=== PATIENT | male | born 1955 | race Caucasian/White ===

== ENCOUNTER 2020-12-06 17:33 | Inpatient (IN) | payer OTHER ==
[~2020-12-06] VITALS: Ht 182.9 cm; Wt 85.3 kg
[~2020-12-06 17:33] MED LIST: ASA81BEC; ATORVASTATIN CA40 MG PO; FELODIPINE 5 MG5 M1 PO; FELODIPINE ER10 MG PO; FISH OIL 1,0001 EAC5 PO; FLONASE 0.05%50 MCG NASAL; ISOSORBIDE; K-DUR10 MEQ PO; LASIX 20 MG TAB20 MG PO; LISINOPRIL; LISINOPRIL40 MG PO; METOPROLOL SUC200 MG PO; NIACIN 100MG T100 M1 PO; TOPROL XL200 MG PO; VENTOLIN HFA 1818 GM INH; WARFARIN SODIUM10 MG PO; ZOCOR 20 MG TAB20 M1 PO
[2020-12-06 17:41] VITALS: BP 150/83
[2020-12-06 17:53] LABS: BASOPHILS 0.4 % (0.0-2.0); EOSINOPHILS 2.7 % (0.0-3.0); HEMATOCRIT 33.5 % (42.0-52.0); HEMOGLOBIN 11.3 gm/dL (14.0-18.0); LYMPHOCYTES 34.5 % (24.0-44.0); MCH 32.3 pg (26.0-34.0); MCHC 33.6 g/dL (28.0-37.0); MCV 96.4 fL (80.0-100.0); MONOCYTES 8.2 % (1.0-8.0); PLATELET COUNT 119 thou/uL (150-400); POLYS 54.2 % (36.0-66.0); RBC 3.48 mil/uL (4.50-6.00); RDW 17.4 % (10.5-14.5); WBC 5.5 thou/uL (4.0-11.0)
[2020-12-06 18:00] LABS: ANION GAP 14 mmol/L (7-16); BUN 12 mg/dL (7-18); CALCIUM 8.4 mg/dL (8.5-10.1); CHLORIDE 108 mmol/L (98-107); CO2 23 mmol/L (21-32); CREATININE 1.2 mg/dL (0.7-1.3); GLUCOSE 120 mg/dL (74-106); POTASSIUM 3.7 mmol/L (3.5-5.1); SODIUM 145 mmol/L (136-145)
[2020-12-06] MEDS ORDERED: LIPITOR 40 MG T40 M1 PO (18:02)
[2020-12-06 18:10] LABS: ALBUMIN 3.6 g/dL (3.4-5.0); SGOT 115 U/L (15-37); SGPT 62 U/L (16-63); TOTAL BILIRUBIN 0.4 mg/dL (0.2-1.0); TOTAL PROTEIN 7.6 g/dL (6.4-8.2); TROPONIN-I <0.06 ng/mL (<0.06)
[2020-12-06 21:32] VITALS: BP 144/75
[2020-12-06 21:51] VITALS: BP 154/94
[2020-12-06 21:59] VITALS: BP 144/94
[2020-12-06 23:01] LABS: CHOLESTEROL 170 mg/dL (<200); HDL CHOLESTEROL 91 mg/dL (>40); LDL CHOLESTEROL 63 mg/dL (<100); TC:HDL 1.9 Ratio (Not establshd); TRIGLYCERIDE 84 mg/dL (<150); VLDL 17 mg/dL (<40)
[2020-12-06 23:03] LABS: SERUM ASSESSMENT Clear
[2020-12-06 23:35] VITALS: BP 154/87
[2020-12-07 03:49] LABS: ANION GAP 12 mmol/L (7-16); BUN 14 mg/dL (7-18); CALCIUM 8.7 mg/dL (8.5-10.1); CHLORIDE 107 mmol/L (98-107); CO2 27 mmol/L (21-32); CREATININE 1.3 mg/dL (0.7-1.3); GLUCOSE 80 mg/dL (74-106); POTASSIUM 4.2 mmol/L (3.5-5.1); SODIUM 146 mmol/L (136-145)
[2020-12-07 03:57] LABS: TROPONIN-I <0.06 ng/mL (<0.06)
[2020-12-07 04:42] VITALS: BP 168/97
[2020-12-07] MEDS ORDERED: MELATONIN3 MG PO (05:09)
[2020-12-07] MEDS ORDERED: ENTRESTO 24 MG1 EACH PO (05:09)
[2020-12-07] MEDS ORDERED: OMEPRAZOLE40 MG PO (05:10)
[2020-12-07] MEDS ORDERED: ASA81BEC PO (05:10)
[2020-12-07] MEDS ORDERED: VITAMIN B-1100 M2 PO (05:10)
[2020-12-07] MEDS ORDERED: THERA M PLUS T1 EAC2 PO (05:11)
[2020-12-07] MEDS ORDERED: FOLIC ACID1 MG PO (05:11)
[2020-12-07] MEDS ORDERED: REVIA 50 MG TAB50 MG PO (05:11)
--- NOTE | 2020-12-07 05:37 | NUR ---
PATIENT WAS ADMITTED TO THE FLOOR APPROX 2130 FROM ED. ON ARRIVAL THIS PATIENT WAS INTOXACATED. PATIENT C/O CHEST PAIN AND HAS A HX OF HEART ATTACH. PATIENT [place] THE [place]ST ONE BEFORE HERE [facility], PRIOR TO THAT IT WAS [facility]. PATIENT HAS A HISTORY OF GOING AMA. CARDIOLOGY WAS CONSULTED, RT IS DOING TREATMENTS. PATIENT HAS HAD TWO STOOLS AT THE END OF THIS SHIFT. THE PLAN IS TO REVIEW THE MED REC IN THE MORNING IN HOPE HE WILL HAVE SLEPT OFF HIS BUZZ. NO FLUIDS OR BANANNA BAGS GIVEN. ROUNDING WAS DONE AND PATIENT WAS PLACED CLOSE TO THE NURSING STATION. THE BED IS IN A LOW AND LOCKED POSITION
--- NOTE | 2020-12-07 07:07 | EKG ---
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: KAILASH : 1955 Requested By: Aurora Mcnally Order Number: [id number] MD: Gregorio Reyes Measurements Intervals [place] Rate: 105 P: 52 HI: 165 QRS: 76 QRSD: 107 T: 3 QT: 338 QTc: 447 Interpretive Statements Sinus tachycardia Abnormal inferior Q waves Compared to ECG 01/12/2016 18:01:18 Inferior Q waves now present Q waves now present ST (T wave) deviation no longer present Electronically Signed On 12-07-2020 7:07:17 CDT by Gregorio Reyes [email or web address] <ELECTRONICALLY SIGNED> By: Gregorio Reyes MD, [facility] 12/07/20 0707 1735 1735 Gregorio Reyes MD, [facility] /[facility]
--- NOTE | 2020-12-07 07:08 | EKG ---
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: : 1955 Requested By: Faina Cr Order Number: [id number] MD: Gregorio Reyes Measurements Intervals [place] Rate: 90 P: 15 AL: 149 QRS: 69 QRSD: 109 T: 47 QT: 384 QTc: 470 Interpretive Statements Sinus rhythm Compared to ECG 12/06/2020 17:35:36 Sinus tachycardia no longer present Inferior Q waves no longer present Q waves no longer present Electronically Signed On 12-07-2020 7:07:54 CDT by Gregorio Reyes [email or web address] <ELECTRONICALLY SIGNED> By: Gregorio Reyes MD, [facility] 12/07/20706 0659 Gregorio Reyes MD, [facility] /EPI
[2020-12-07 07:28] VITALS: BP 154/91
--- NOTE | 2020-12-07 09:06 | 2DMMODE ---
[facility] [place] [place] [address] 2 D/M-MODE ECHOCARDIOGRAM Name: CHRIS SYKES Room #: 204-P ADM IN M.R.#: [id number] Admission: 12/06/20 Attend Phys: Kali Ybarra MD Discharge: Date of : 59 Report #: [id number] THIS REPORT FOR: cc: PRECIOUS - No family physician/PCP FAM - No family physician/PCP Moiz James MD ~ APPROVED REPORT Study performed: 12/07/2020 08:23:42 EXAM: Comprehensive 2D, Doppler, and color-flow Echocardiogram Patient Location: Bedside Room #: 204 Status: routine BSA: 2.08 HR: 102 bpm BP: 154/91 mmHg Rhythm: NSR/TACHY Other Information Study Quality: Adequate Technically limited study due to lung disease, constant movement. Indications Chest Pain Hx: PA, stents, ETOH and tob abuse, COPD, HTN, HLP. 2D Dimensions RVDd: 33.69 mm IVSd: 10.39 (7-11mm) LVDd: 50.39 mm PWd: 12.10 (7-11mm) LVDs: 37.74 (25-40mm) Left Atrium: 42.67 (27-40mm) Aortic Root: 37.45 mm Volumes Left Atrial Volume (Systole) Single Plane 4CH: 71.52 mL Single Plane 2CH: 68.80 mL LA ESV Index: 40.00 mL/m2 Aortic Valve AoV Peak Dann.: 1.41 m/s [facility] [address] [address] 2 D/M-MODE ECHOCARDIOGRAM Name: SAMINAVIJICHRIS RUCKER Room #: 204-P [facility] IN ..#: [id number] Admission: 12/06/20 Attend Phys: Kali Ybarra MD Discharge: Date of : 59 Report #: [id number] AO Peak Gr.: 7.99 mmHg LVOT Max P.94 mmHg LVOT Max V: 0.99 m/s Pulmonary Valve PV Peak Dann.: 1.06 m/s PV Peak Gr.: 4.49 mmHg Tricuspid Valve TR Peak Dann.: 2.59 m/s RAP Estimate: 5.00 mmHg TR Peak Gr.: 27.00 mmHg PA Pressure: 32.00 mmHg Left Ventricle The left ventricle is normal size. Regional wall motion abnormalities are noted though endocardium is poorly visualized in the basilar inferior wall and lateral wall. There is normal left ventricular wall thickness. Left ventricular systolic function is normal. LVEF is 50-55%. This study is not technically sufficient to allow evaluation of the LV diastolic function. Right Ventricle The right ventricle is normal size. The right ventricular systolic function is normal. Atria Left atrium is mildly dilated. The right atrium size is normal. Aortic Valve The aortic valve is normal in structure. No aortic regurgitation is present. There is no aortic valvular stenosis. Mitral Valve The mitral valve is normal in structure. Mild mitral annular calcification. Mild mitral regurgitation. No evidence of mitral valve stenosis. Tricuspid Valve The tricuspid valve is normal in structure. Trace tricuspid regurgitation. Estimated PAP is 30-35mmHg. Pulmonic Valve Pulmonic valve is not well visualized. Great Vessels The aortic root is normal in size. Ascending aorta is not well visualized. IVC is normal in size and collapses >50% with [facility] [address] [address] 2 D/M-MODE ECHOCARDIOGRAM Name: CHRIS SYKES Room #: 204-P ADM IN M.R.#: [id number] Admission: 12/06/20 Attend Phys: Kali Ybarra MD Discharge: Date of : 59 Report #: [id number] inspiration. Pericardium There is no pericardial effusion. <Conclusion> The left ventricle is normal size. Regional wall motion abnormalities are noted though endocardium is poorly visualized in the basilar inferior wall and lateral wall. LVEF is 50-55%. The right ventricle is normal size. Left atrium is mildly dilated. The aortic valve is normal in structure. The mitral valve is normal in structure. Mild mitral annular calcification. Mild mitral regurgitation. The tricuspid valve is normal in structure. Trace tricuspid regurgitation. Estimated PAP is 30-35mmHg. Pulmonic valve is not well visualized. The aortic root is normal in size. There is no pericardial effusion. <ELECTRONICALLY SIGNED> By: Moiz James MD 12/07/20905 5 5 Moiz James MD /INF
[2020-12-07 10:51] VITALS: BP 154/91
--- NOTE | 2020-12-07 11:32 | NUR ---
ASSESSMENT CHARTED - MEDS PER DEANDRA MILNER DIET AND FLUIDS. UP IN ROOM UNSTEADY ON FEET - TREMORS. PT HOME THIS AM - TO HAVE OUT PT STRESS TEST. INSTRUCTION RE HOME MEDS/ CARE AND FOLLOW UP GIVEN TO PATIENT - STATED UNDERSTANDING OF INSTRUCTION GIVEN. LEFT UNIT VIA WHEELCHAIR - HOME VIA CAB - GIVEN VOUCHER. NO CO'S AT TIME OF D/.C
== END 2020-12-07 11:15 | disposition home or self-care (01) | DRG 313 ==
LOC: ER 17:33 → 2N 21:05 → EROBS 21:05 → 2N 21:52
PROVIDERS: Nurse Practitioner Family; Physician Assistant; ADMIT Hospitalist; ATTEND Hospitalist
DX: R07.89 Other chest pain (principal); S20.212A Contusion of left front wall of thorax, initial encounter; W18.39XA Other fall on same level, initial encounter; I25.10 Atherosclerotic heart disease of native coronary artery without angina pectoris; I10 Essential (primary) hypertension; E78.00 Pure hypercholesterolemia, unspecified; F10.129 Alcohol abuse with intoxication, unspecified; Y90.9 Presence of alcohol in blood, level not specified; E78.5 Hyperlipidemia, unspecified; F17.210 Nicotine dependence, cigarettes, uncomplicated; Y92.89 Other specified places as the place of occurrence of the external cause; Z95.5 Presence of coronary angioplasty implant and graft; I25.2 Old myocardial infarction; Y93.89 Activity, other specified; Y99.8 Other external cause status; Z79.01 Long term (current) use of anticoagulants; Z79.82 Long term (current) use of aspirin; Z79.899 Other long term (current) drug therapy; Z88.0 Allergy status to penicillin
CPT/HCPCS: 10081

== ENCOUNTER 2021-02-26 15:44 | Emergency (ER) | payer OTHER ==
[~2021-02-26] VITALS: Ht 182.9 cm; Wt 81.7 kg
[~2021-02-26 15:44] MED LIST changes: +ASA81BEC PO; +ENTRESTO 24 MG1 EACH PO; +FOLIC ACID1 MG PO; +LIPITOR 40 MG T40 M1 PO; +MELATONIN3 MG PO; +OMEPRAZOLE40 MG PO; +REVIA 50 MG TAB50 MG PO; +THERA M PLUS T1 EAC2 PO; +VITAMIN B-1100 M2 PO
[2021-02-26 15:45] VITALS: BP 164/84
[2021-02-26 16:31] LABS: HEMATOCRIT 42.4 % (42.0-52.0); HEMOGLOBIN 14.4 gm/dL (14.0-18.0); MCH 32.8 pg (26.0-34.0); MCHC 33.9 g/dL (28.0-37.0); MCV 96.6 fL (80.0-100.0); RBC 4.39 mil/uL (4.50-6.00); WBC 10.4 thou/uL (4.0-11.0)
[2021-02-26 16:46] LABS: ANION GAP 19 mmol/L (7-16); BUN 26 mg/dL (7-18); CALCIUM 8.8 mg/dL (8.5-10.1); CHLORIDE 101 mmol/L (98-107); CO2 16 mmol/L (21-32); CREATININE 1.4 mg/dL (0.7-1.3); GLUCOSE 54 mg/dL (74-106); POTASSIUM 4.4 mmol/L (3.5-5.1); SODIUM 136 mmol/L (136-145)
[2021-02-26 16:52] LABS: ALBUMIN 3.6 g/dL (3.4-5.0); SALICYLATE 5.5 mg/dL (2.8-20.0); SGOT 28 U/L (15-37); SGPT 35 U/L (16-63); TOTAL BILIRUBIN 0.3 mg/dL (0.2-1.0); TOTAL PROTEIN 7.8 g/dL (6.4-8.2); TROPONIN-I <0.06 ng/mL (<0.06)
[2021-02-26 19:12] LABS: URINE BILIRUBIN NEGATIVE (Negative); URINE BLOOD NEGATIVE (Negative); URINE CLARITY CLEAR; URINE COLOR YELLOW; URINE GLUCOSE-RANDOM* NEGATIVE (Negative); URINE KETONES 1+ (Negative); URINE LEUKOCYTES-REFLEX NEGATIVE (Negative); URINE NITRITE-REFLEX NEGATIVE (Negative); URINE PROTEIN (DIPSTICK) NEGATIVE (Negative); URINE SPECIFIC GRAVITY 1.025 (1.005-1.035); URINE UROBILINOGEN 0.2 E.U./dl (0.2-1.0)
[2021-02-26 19:21] LABS: AMP/METHAMP Negative (Negative); BARBITURATES Negative (Negative); BENZODIAZEPINES Negative (Negative); COCAINE Negative (Negative); METHADONE Negative (Negative); OPIATES Negative (Negative); PCP Negative (Negative)
[2021-02-26 21:16] LABS: CALCIUM 8.6 mg/dL (8.5-10.1); CREATININE 1.5 mg/dL (0.7-1.3); POTASSIUM 4.2 mmol/L (3.5-5.1)
--- NOTE | 2021-02-27 10:46 | EKG ---
[place] [address] [facility] [place] [address] ELECTROCARDIOGRAM REPORT Name: MONYCHRIS D Room #: [facility]#: [id number] Admission: 02/26/21 Attend Phys: Discharge: Date of : 59 Report #: [id number] [facility] ED Test Date: 2021-02-26 Test Time: 16:01:58 Pat Name: CHRIS SYKES Department: Room: Gender: M Geospatial Specialist: DOTTIE : 1955 Requested By: Miroslava Canales Order Number: [id number] MD: Daniel Leon Measurements Intervals [place] Rate: 97 P: 0 HI: 145 QRS: 66 QRSD: 110 T: -7 QT: 385 QTc: 489 Interpretive Statements Sinus rhythm Small inferior Q waves Compared to ECG 12/07/2020 06:59:19 No significant change was found Electronically Signed On 02-27-2021 10:46:39 CDT by Daniel Leon [email or web address] <ELECTRONICALLY SIGNED> By: Daniel Leon MD, [facility] 02/27/21 1046 1601 1601 Daniel Leon MD, FACC /EPI
== END 2021-02-27 12:50 ==
LOC: ER 15:44
PROVIDERS: Nurse Practitioner Family
DX: R45.851 Suicidal ideations (principal); I25.10 Atherosclerotic heart disease of native coronary artery without angina pectoris; I10 Essential (primary) hypertension; E78.5 Hyperlipidemia, unspecified; F10.129 Alcohol abuse with intoxication, unspecified; Z20.822 Contact with and (suspected) exposure to COVID-19; Z79.51 Long term (current) use of inhaled steroids; Z79.899 Other long term (current) drug therapy; Z88.0 Allergy status to penicillin

== ENCOUNTER 2021-06-07 04:14 | Emergency (ER) | payer OTHER ==
[~2021-06-07] VITALS: Ht 182.9 cm; Wt 79.4 kg
[2021-06-07 05:04] LABS: ABSOLUTE NEUTROPHILS 2.5 thou/uL (1.4-8.2); EOSINOPHILS 5.1 % (0.0-3.0); HEMATOCRIT 37.4 % (42.0-52.0); HEMOGLOBIN 13.1 gm/dL (14.0-18.0); LYMPHOCYTES 46.1 % (24.0-44.0); MCH 33.3 pg (26.0-34.0); MCV 95.2 fL (80.0-100.0); MONOCYTES 6.4 % (1.0-8.0); PLATELET COUNT 82 thou/uL (150-400); POLYS 41.4 % (36.0-66.0); RBC 3.93 mil/uL (4.50-6.00); RDW 13.8 % (10.5-14.5)
[2021-06-07 05:06] LABS: ANION GAP 11 mmol/L (7-16); BUN 8 mg/dL (7-18); CALCIUM 8.6 mg/dL (8.5-10.1); CHLORIDE 95 mmol/L (98-107); CO2 28 mmol/L (21-32); CREATININE 1.1 mg/dL (0.7-1.3); GLUCOSE 88 mg/dL (74-106); POTASSIUM 3.1 mmol/L (3.5-5.1); SODIUM 134 mmol/L (136-145)
[2021-06-07 06:21] VITALS: BP 125/82
--- NOTE | 2021-06-07 15:41 | EKG ---
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 : 1955 Requested By: Carson Khan Order Number: [id number] MD: Gregorio Reyes Measurements Intervals [place] Rate: 83 P: 46 [place]: 163 QRS: 71 QRSD: 117 T: 24 QT: 409 QTc: 481 Interpretive Statements Sinus rhythm Nonspecific intraventricular conduction delay Compared to ECG 02/26/2021 16:01:58 Intraventricular conduction delay now present Electronically Signed On 06-07-2021 15:40:55 CDT by Gregorio Reyes [email or web address] <ELECTRONICALLY SIGNED> By: Gregorio Reyes MD, FACC 06/07/21 1540 0420 0420 Gregorio Reyes MD, FACC /EPI
== END 2021-06-07 06:27 | disposition home or self-care (01) ==
LOC: ER 04:14
PROVIDERS: Emergency Medicine
DX: F10.129 Alcohol abuse with intoxication, unspecified (principal); I25.10 Atherosclerotic heart disease of native coronary artery without angina pectoris; I10 Essential (primary) hypertension; E78.5 Hyperlipidemia, unspecified; F55.8 Abuse of other non-psychoactive substances; Z90.49 Acquired absence of other specified parts of digestive tract; Z79.51 Long term (current) use of inhaled steroids; Z79.82 Long term (current) use of aspirin; Z79.891 Long term (current) use of opiate analgesic; Z79.1 Long term (current) use of non-steroidal anti-inflammatories (NSAID); Z79.899 Other long term (current) drug therapy; Z88.0 Allergy status to penicillin

== ENCOUNTER 2021-06-11 16:45 | Inpatient (IN) | payer OTHER ==
[~2021-06-11] VITALS: Ht 182.9 cm; Wt 75.3 kg
--- NOTE | ~2021-06-11 | HC ---
[facility] [place] [address] CONSULTATION Name: MONYCHRIS Room #: 204-P [facility] IN ..#: [id number] Admission: 06/11/21 Attend Phys: Jovon Alford MD Discharge: 06/14/21 Date of : 59 Report #: [id number] THIS REPORT FOR: cc: PRECIOUS - No family physician/PCP FAM - No family physician/PCP Ignacio Henriquez MD ~ DATE OF SERVICE: 06/14/2021 We were asked to see the patient by the hospitalist and neurologist. HISTORY OF PRESENT ILLNESS: The patient is a 65-year-old, admitted 06/11/2021 with neurologic change. The patient tells me that he had the onset of left arm and leg pain rather than weakness or lack of sensation. Later, this progressed to include visual changes. According to the ER note, the patient had unilateral weakness and pain noted approximately 2 hours prior to arrival. Over the course of the hospitalization, the symptoms largely resolved. CT of the head showed 60-70% right and 50% left internal carotid stenosis. MRI showed atrophy and chronic small vessel ischemic disease, but no acute changes. Carotid duplex showed some mild increase in activity, but no hemodynamically significant stenosis by this modality. PAST MEDICAL HISTORY: Significant for coronary artery disease, hypertension, hyperlipidemia, and alcohol abuse. MEDICATIONS: At home includes albuterol, Entresto, melatonin, thiamine, aspirin, omeprazole, Revia, folic acid, multivitamin, lisinopril, warfarin, metoprolol, furosemide, potassium, Plendil, and atorvastatin. ALLERGIES: THE PATIENT STATES HE IS ALLERGIC TO PENICILLIN and that this causes rash. SOCIAL HISTORY: Positive for alcohol and tobacco use. REVIEW OF SYSTEMS: I agree with the review of systems as dictated in the chart. PHYSICAL EXAMINATION: GENERAL: The patient is sitting in his room quietly, looks older than his stated age. VITAL SIGNS: Temperature 37.5, heart rate 67, respiratory rate 18, and blood pressure 129/85. HEENT: No scleral icterus. I see no arcus. NECK: No mass, no bruit. CHEST: Clear to auscultation. HEART: Rhythm regular, no murmur. ABDOMEN: Soft. [facility] [address] [place] [address] CONSULTATION Name: CHRIS SYKES Hillary Room #: 204-P [facility] IN [facility].#: [id number] Admission: 06/11/21 Attend Phys: Jovon Alford MD Discharge: 06/14/21 Date of : 59 Report #: [id number] EXTREMITIES: No clubbing, cyanosis, or edema. MUSCULOSKELETAL: No specific bone or joint asymmetry or deformity. NEUROLOGIC: No gross motor or sensory dysfunction. SKIN: No rash or infection. PSYCHIATRIC: Answers questions appropriately, but is vague on timing and is eager to go home. ASSESSMENT AND PLAN: I reviewed the findings of the MRI and CT with the patient and discussed them in the context of his symptoms. As described to me, the symptom of left-sided pain is unusual for stroke or neurologic dysfunction. The weakness described in the Emergency Department would be more characteristic. There is no high-grade lesions seen. It is not clear to me what the role for Coumadin is in this patient, but I will discuss this with others. In any event, we note the patient is already slated for discharge and we are happy to see the patient again in the office after our discussions with Neurology. Thank you for the consult. By: [id number] Ignacio Henriquez MD /nt
--- NOTE | ~2021-06-11 | HC ---
[facility] [place] [address] CONSULTATION Name: MONYCHRIS Hillary Room #: 204-P ADM IN ..#: [id number] Admission: 06/11/21 Attend Phys: Jovon Alford MD Discharge: Date of : 59 Report #: [id number] THIS REPORT FOR: cc: FAM - No family physician/PCP FAM - No family physician/PCP Ezio Botello MD ~ DATE OF SERVICE: 06/12/2021 HISTORY OF PRESENT ILLNESS: The patient is a 65-year-old white male with history of coronary artery disease, alcohol abuse, hypertension, admitted with blurry vision, weakness, left arm and leg. MRI of the brain was negative. He does have bilateral carotid disease. He had some pain complaints of his left shoulder and arm and x-rays of the shoulder and elbow are both negative. He has a past history of alcohol abuse, half a pint of whiskey per day and was noted to have confusion, agitation overnight with impulsive behavior, was given Haldol and has Ativan for alcohol withdrawal. We are seeing him in rehabilitation medicine consultation. PAST MEDICAL HISTORY: Includes prior [place] and history of tobacco abuse, one-third pack per day. HABITS: As noted. MEDICATIONS: Please see the full medication listing. ALLERGIES: PENICILLIN. SOCIAL HISTORY: Apparently lives in a house with a female significant other who works. The patient indicated he worked in [employer]. He was somewhat confused and is a limited historian. REVIEW OF SYSTEMS: No specific complaints of chest pain, shortness of breath or abdominal discomfort. PHYSICAL EXAMINATION: GENERAL: A 65-year-old white male, in no obvious distress. VITAL SIGNS: Temperature of 36.4, pulse 73, respirations 18, blood pressure 110/76. NEUROLOGIC: Facies appeared symmetric. He thought that he had stopped working in 1961 and that the current year was 1962. He does follow basic 1-step commands with some latency. He has functional range of motion of both upper extremities, strength is grade 4-/5. Lower extremities, no focal calf swelling, functional range of motion, strength is grade 4-/5. DTRs are trace to 1. On 06/12/2021, he was up in physical therapy with sit to stand, min assist, gait 150 feet min assist at that time and toilet transfers were min assist. [address] [address] CONSULTATION Name: CHRIS SYKES Room #: 204-P [facility] IN [facility].#: [id number] Admission: 06/11/21 Attend Phys: Jovon Alford MD Discharge: Date of : 59 Report #: [id number] ASSESSMENT: A 65-year-old white male with the following problem list: 1. Alcohol withdrawal. He has a history of ETOH abuse. He was given Haldol and has Ativan available. 2. Bilateral carotid artery disease, right worse than left. 3. Left arm discomfort that appears to be improved. X-rays were negative. 4. Hypertension. 5. Hyperlipidemia. 6. Hypokalemia. 7. Tobacco abuse. PLAN: The patient was doing reasonably well functionally and physical therapy. He is now being monitored regarding alcohol abuse. Would anticipate he should be able to return back to the home setting as he further medically stabilizes and improves from his alcohol abuse. Thank you for asking us to assist in this patient's care. By: 0836 0911 Ezio Botello MD /nt
[2021-06-11 16:46] VITALS: BP 142/84
[2021-06-11 17:34] LABS: ABSOLUTE NEUTROPHILS 3.9 thou/uL (1.4-8.2); BASOPHILS 0.8 % (0.0-2.0); EOSINOPHILS 1.3 % (0.0-3.0); HEMOGLOBIN 11.2 gm/dL (14.0-18.0); LYMPHOCYTES 26.5 % (24.0-44.0); MCH 32.9 pg (26.0-34.0); MCV 96.7 fL (80.0-100.0); MONOCYTES 9.5 % (1.0-8.0); PLATELET COUNT 94 thou/uL (150-400); POLYS 61.9 % (36.0-66.0); RBC 3.42 mil/uL (4.50-6.00); RDW 14.3 % (10.5-14.5); WBC 6.3 thou/uL (4.0-11.0)
[2021-06-11 17:42] LABS: CALCIUM 8.1 mg/dL (8.5-10.1)
[2021-06-11 17:45] LABS: APTT 26.9 Seconds (24.5-32.8); INR 1.01
[2021-06-11 17:57] LABS: POTASSIUM 2.8 mmol/L (3.5-5.1)
[2021-06-11 20:21] VITALS: BP 151/82
[2021-06-11 21:05] VITALS: BP 154/90
[2021-06-11 22:20] VITALS: BP 149/98
--- NOTE | 2021-06-12 00:46 | NUR ---
PT ADMITTED FROM ER, ALERT AND ORIENTEDX4, PAIN TO THE L.LOWER LEG AND L.ARM, ADMISSION ASSESSMENT, HX AND EDUCATION COMPLETED, UNABLE TO OBTAIN ANY CONTACT INFORMATION FOR THE DAUGHTER AND FRIEND, NIH SCORE OF 5, NO NEEDS AT THIS TIME, WILL CONTINUE TO MONITOR PER POC
[2021-06-12 04:37] LABS: HEMATOCRIT 35.9 % (42.0-52.0); HEMOGLOBIN 12.4 gm/dL (14.0-18.0); MCH 33.3 pg (26.0-34.0); MCHC 34.5 g/dL (28.0-37.0); MCV 96.6 fL (80.0-100.0); RBC 3.72 mil/uL (4.50-6.00); RDW 14.4 % (10.5-14.5); WBC 5.5 thou/uL (4.0-11.0)
[2021-06-12 04:45] VITALS: BP 129/89
[2021-06-12 05:06] LABS: ANION GAP 9 mmol/L (7-16); BUN 8 mg/dL (7-18); CALCIUM 8.7 mg/dL (8.5-10.1); CHLORIDE 102 mmol/L (98-107); CHOLESTEROL 115 mg/dL (<200); CO2 27 mmol/L (21-32); CREATININE 1.1 mg/dL (0.7-1.3); GLUCOSE 108 mg/dL (74-106); HDL CHOLESTEROL 57 mg/dL (>40); LDL CHOLESTEROL 37 mg/dL (<100); POTASSIUM 3.3 mmol/L (3.5-5.1); SODIUM 138 mmol/L (136-145); TRIGLYCERIDE 108 mg/dL (<150); VLDL 22 mg/dL (<40)
[2021-06-12 05:09] LABS: SERUM ASSESSMENT Clear
[2021-06-12 07:45] VITALS: BP 133/85
--- NOTE | 2021-06-12 11:29 | EKG ---
[address] [place] [address] ELECTROCARDIOGRAM REPORT Name: CHRIS SYKES Room #: 204-P [facility] IN ..#: [id number] Admission: 06/11/21 Attend Phys: Jovon Alford MD Discharge: Date of : 59 Report #: [id number] 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 Inspector: WALTER : 1955 Requested By: Carson Khan Order Number: [id number] MD: Daniel Leon Measurements Intervals [place] Rate: 80 P: -8 DC: 163 QRS: 43 QRSD: 115 T: 7 QT: 403 QTc: 465 Interpretive Statements Sinus rhythm Multiple ventricular premature complexes Compared to ECG 06/07/2021 04:20:01 Ventricular premature complex(es) now present Electronically Signed On 06-12-2021 11:29:37 CDT by Daniel Leon [email or web address] <ELECTRONICALLY SIGNED> By: Daniel Leon MD, [facility] 06/12/21 1129 39 39 Daniel Leon MD, [facility] /EPI
[2021-06-12 11:30] VITALS: BP 117/74
--- NOTE | 2021-06-12 12:23 | NUR ---
ASSUMED CARE OF PT AT 0700 PT IS RESTING IN BED AT TIME OF ASSESSMENT AND MEDICATION ADMINISTRATION. PT REPORTS SLIGHT PAIN IN LEFT SIDE OF LEG AND LEFT UPPER EXTERMITY. PT ALSO REPORTS THAT HE IS HAVING SOME ANXIETY. PT IS GIVEN PO MEDICATINS ALONG IWTH 1MG OF ATIVAN IV. PT STATED THAT MEDICATION WAS EFFECTIVE AT RELEAVING PT ANXIETY. PT IS RESTING IN ROOM EATING LUNCH AT THIS ITME. WILL CONTINUE TO MONITOR.
--- NOTE | 2021-06-12 14:18 | NUR ---
CONSULT RECEIVED FOR DR. ROMERO. PATIENT'S CHART REVIEWED BY ESCALATION ENGINEER AND INFORMATION REVIEWED WITH DR. ROMERO. PATIENT IS A HIGHER LEVEL AND MAY BE ABLE TO DISCHARGE TO HOME WHEN MEDICALLY STABLE. WILL FOLLOW UP ON MONDAY TO CONFIRM IF PATIENT MIGHT HAVE PAYER SOURCE AND TO SEE LEVEL OF FUNCTION TO DETERMINE IF PATIENT WOULD NEED REHAB STAY OR BE ABLE TO DISCHARGE TO HOME. THANK YOU FOR THIS REFERRAL.
[2021-06-12 15:45] VITALS: BP 114/74
[2021-06-12 20:20] VITALS: BP 118/69
[2021-06-12 23:14] VITALS: BP 118/69
[2021-06-13 03:08] LABS: HEMOGLOBIN 11.5 gm/dL (14.0-18.0); MCH 32.8 pg (26.0-34.0); MCHC 33.7 g/dL (28.0-37.0); MCV 97.3 fL (80.0-100.0); RBC 3.5 mil/uL (4.50-6.00); RDW 14.1 % (10.5-14.5); WBC 4.2 thou/uL (4.0-11.0)
[2021-06-13 03:24] LABS: CALCIUM 8.4 mg/dL (8.5-10.1); POTASSIUM 3.7 mmol/L (3.5-5.1)
[2021-06-13 04:07] VITALS: BP 132/72
--- NOTE | 2021-06-13 04:37 | NUR ---
ASSUMED PT CARE AT 1900, PT IS AWAKE, ALERT AND ORIENTEDX4, ASSESSMENTS CHARTED, AFIB ON TELE, REMAINS ON CARDIZEM GTT, TITRATED PER PROTOCOL, NOW AT 10ML/HR, DENIES PAIN OR SOA, NO NEEDS AT THIS TIME, WILL CONTINUE TO MONITOR PER POC
--- NOTE | 2021-06-13 04:53 | NUR ---
ASSUMED PT CARE AT 1900, ALERT AND ORIENTEDX4, SR ON TELE, REPORTED SOME ANXIETY, CIWA SCORE OF A 10, PT GIVEN ATIVAN PER PROTOCOL AND PRN FOR ANXIETY, REQUESTED RENATA TX, RIDING TEACHER NOTIFIED, ORDERS RECEIVED AND IMPLEMENTED, MEDS GIVEN PER MAR, INCONTINENT OF URINE AT TIMES, REMINDED TO USE CALL LIGHT FOR NEEDS, ALL FALL PRECAUTIONS IN PLACE; FREQUENT ROUNDING, WILL CONTINUE TO MONITOR PT PER POC
[2021-06-13 07:08] LABS: GLYCOHEMOGLOBIN (HGB A1C) 4.9 % (4.8-5.6)
[2021-06-13 07:45] VITALS: BP 129/68
--- NOTE | 2021-06-13 09:56 | HC ---
[facility] [place] [place] [address] CONSULTATION Name: MONYCHRIS D Room #: 204-P ADM IN ..#: [id number] Admission: 06/11/21 Attend Phys: Jovon Alford MD Discharge: Date of : 59 Report #: [id number] THIS REPORT FOR: cc: FAM - No family physician/PCP FAM - No family physician/PCP Ava Armstrong DO ~ DATE OF SERVICE: 06/12/2021 NEUROLOGY CONSULT HISTORY OF PRESENT ILLNESS: The patient is a 65-year-old male who tells me that he started to develop left arm and leg pain yesterday, it was throughout the arm. He finally decided to come to the Emergency Room when the pain became intense. He also thought there was a weakness in the arm and leg, but thought that was from the pain. There may have been some numbness. He states that today the pain is better, although he still has it. He takes an aspirin 81 mg a day. He also takes metoprolol. He tells me that he sees a mail messenger at , but does not have a primary care physician. PAST MEDICAL HISTORY: Coronary artery disease, alcohol abuse, alcohol-related seizures, tobacco abuse, hypertension, hyperlipidemia. PAST SURGICAL HISTORY: Cholecystectomy. MEDICATIONS: Aspirin 81 mg daily, atorvastatin 40 mg at bedtime, Lovenox 40 mg at bedtime, folic acid 1 mg daily, lisinopril 40 mg daily, metoprolol XL 200 mg daily, Norvasc 10 mg daily, pantoprazole 40 mg daily, thiamine 100 mg daily. ALLERGIES: PENICILLIN. VITAL SIGNS: Temperature 36.8, pulse rate 75, respiratory rate 18, blood pressure 117/74, bedside pulse oximetry 100% on room air. LABORATORY DATA: Hematology: White blood cell count 5.5, hemoglobin 12.4, hematocrit 35.9, MCV 96.6, platelet count 105,000. INR 1. Chemistry: Sodium 138, potassium 3.3, chloride 102, carbon dioxide 27, creatinine 1.1, GFR 68, glucose 108, calcium 8.7, magnesium 1.8. Triglycerides 108, cholesterol 115, LDL cholesterol 37, HDL cholesterol 57. Serum alcohol level 135. Serology: COVID negative. RADIOLOGY: CTA of the head and neck show at least 60-70% narrowing of the right internal carotid artery and 50% narrowing of the left internal carotid artery. There is 50% narrowing of the right vertebral artery. NEUROLOGIC: Cranial nerves II-XII are grossly intact. Motor exam demonstrates symmetrical strength in all 4 extremities. The [place] [address] CONSULTATION Name: CHRIS SYKES Hillary Room #: 204-P [facility]#: [id number] Admission: 06/11/21 Attend Phys: Jovon Alford MD Discharge: Date of : 59 Report #: [id number] above his head. He is able to lift each leg off the bed. Reflexes are trace throughout. Plantar responses are flexor. Coordination shows no evidence of dysmetria. Gait was not tested. IMPRESSION AND PLAN: This patient may have had either a TIA or possibly a stroke given that he continues to have pain in the left upper and lower extremities, although I saw no evidence of weakness on examination. An MRI of the head has been ordered for him. He is also going to need an echocardiogram. I would also recommend a Vascular Surgery consult. With regard to the patient's medication, I would recommend an increase in aspirin to 325 mg daily. I spoke with the patient about his cigarette use and he says that he is trying to stop. I explained to him that this would be a good time to finally stop smoking as his smoking puts him at risk for stroke. I thank you for your kind referral of the patient. We will continue to follow him with you. <ELECTRONICALLY SIGNED> By: Ava Armstrong DO 06/13/21 0956 1145 1332 Ava Armstrong DO /nt
[2021-06-13 11:45] VITALS: BP 129/69
[2021-06-13 15:45] VITALS: BP 98/64
[2021-06-14] VITALS (7 sets, daily range): BP systolic 92–129; BP diastolic 57–85
--- NOTE | 2021-06-14 02:45 | NUR ---
ASSUMMED PT CARE AT 1900, PT IS VERY CONFUSED, IMPULSIVE, AGITATED, ATTEMPTED TO GET OT OT BED MULTIPLE TIMES, LIBRARY SERIALS ASSISTANT NOTIFIED, ORDER FOR ONETIME HALDOL RECEIVED AND IMPLEMENTED, PT REMAINED CALM WITH PERIODS OF AGITATION AND IMPULSIVENESS, REMAINS CONFUSED THIS SHIFT, REORIENTED TO REALITY COUPLE TIMES, MANAGED WITH ATIVAN FOR ALCOHOL WITHDRAWAL, O2SATS STABLE, INCONTINENT OF URINE, IV FLUIDS NOT RUNNIND D/T PATIENT ATTEMPTING TO PULL ON THE IV, WILL CONTINUE TO MONITOR AND TREAT PT FOR WITHDRAWAL PER ORDERS; NOT PROGRESSING TOWARDS DISCHARGE AT THIS TIME
--- NOTE | 2021-06-14 11:10 | 2DMMODE ---
[facility] [place] [address] 2 D/M-MODE ECHOCARDIOGRAM Name: CHRIS SYKES Room #: 204-P ADM IN ..#: [id number] Admission: 06/11/21 Attend Phys: Jovon Alford MD Discharge: Date of : 59 Report #: [id number] THIS REPORT FOR: cc: PRECIOUS - Kayce family physician/PCP PRECIOUS - Kayce family physician/PCP Gregorio Reyes MD [facility] ~ APPROVED REPORT Study performed: 06/14/2021 10:00:36 EXAM: Comprehensive 2D, Doppler, and color-flow Echocardiogram Patient Location: Bedside Room #: 204 Status: routine BSA: 98.68 HR: 63 bpm BP: 110/76 mmHg Rhythm: NSR Other Information Study Quality: Good Indications CVA/TIA CAD Hypertension/HDD Echo Enhancing Agent Indication: Rule out Shunt Agent(s) / Amount(s) Used: Agitated Saline 7 cc 2D Dimensions RVDd: 28.97 mm IVSd: 8.89 (7-11mm) LVOT Diam: 25.51 (18-24mm) LVDd: 56.08 mm PWd: 9.09 (7-11mm) Ascending Ao: 37.58 (22-36mm) LVDs: 35.75 (25-40mm) Left Atrium: 38.39 (27-40mm) Aortic Root: 38.32 mm IVC: 20.00 mm Volumes Left Atrial Volume (Systole) Single Plane 4CH: 47.04 mL Single Plane 2CH: 34.[address] [facility] [address] [address] 2 D/M-MODE ECHOCARDIOGRAM Name: CHRIS SYKES Room #: 204-P [facility] IN ..#: [id number] Admission: 06/11/21 Attend Phys: Jovon Alford MD Discharge: Date of : 59 Report #: [id number] Aortic Valve AoV Peak Adnn.: 0.98 m/s AO Peak Gr.: 3.86 mmHg LVOT Max P.86 mmHg LVOT Max V: 0.85 m/s JASON Vmax: 4.40 cm2 Mitral Valve E/A Ratio: 0.7 MV Decel. Time: 321.37 ms MV E Max Dann.: 0.68 m/s MV A Dann.: 0.91 m/s MV PHT: 93.20 ms IVRT: 198.39 ms Pulmonary Valve PV Peak Dann.: 0.83 m/s PV Peak Gr.: 2.73 mmHg Pulmonary Vein P Vein S: 0.56 m/s P Vein A: 0.15 m/s P Vein D: 0.34 m/s P Vein A Dur.: 96.9 msec P Vein S/D Ratio: 1.65 Left Ventricle The left ventricle is normal size. There is normal LV segmental wall motion. There is normal left ventricular wall thickness. Left ventricular systolic function is normal. The left ventricular ejection fraction is within the normal range. LVEF is 55-60%. Grade I - abnormal relaxation pattern. Right Ventricle The right ventricle is normal size. The right ventricular systolic function is normal. Atria The left atrium size is normal. Injection of contrast documented no interatrial shunt. The right atrium size is normal. Aortic Valve The aortic valve is normal in structure. No aortic regurgitation is present. There is no aortic valvular stenosis. Mitral Valve The mitral valve is normal in structure. Mild mitral regurgitation. No evidence of mitral valve stenosis. Tricuspid Valve [facility] [address] [place] [address] 2 D/M-MODE ECHOCARDIOGRAM Name: CHRIS SYKES Room #: 204-P [facility] IN .R.#: [id number] Admission: 06/11/21 Attend Phys: Jovon Alford MD Discharge: Date of : 59 Report #: [id number] The tricuspid valve is normal in structure. There is no tricuspid valve regurgitation noted. Pulmonic Valve The pulmonary valve is normal in structure. There is no pulmonic valvular regurgitation. Great Vessels The aortic root is normal in size. IVC is normal in size and collapses >50% with inspiration. Pericardium There is no pericardial effusion. <Conclusion> Normal left ventricle size/wall thickness central ejection fraction 55-60% Grade 1 diastolic dysfunction Normal right ventricle size/function Normal atrial size Normal aortic valve structure and function Mild mitral valve insufficiency No tricuspid valve insufficiency No pericardial effusion Normal aortic root size. <ELECTRONICALLY SIGNED> By: Gregorio Reyes MD, FACC 06/14/211108 08 08 Gregorio Reyes MD, FACC /INF
--- NOTE | 2021-06-14 15:34 | NUR ---
met with patient he admits with leg weakness. Patient resides in independent home. He has a lady friend who assists him at home. He reports she is with him 80 percent of the time. he has no health insurance. has canes and walkers at home. Patient to vt home today. Cab voucher given to patient. verified address.
== END 2021-06-14 18:50 | disposition home or self-care (01) | DRG 301 ==
LOC: ER 16:45 → EROBS 18:24 → 2N 22:07
PROVIDERS: Emergency Medicine; ADMIT Hospitalist; ATTEND Hospitalist
DX: I77.9 Disorder of arteries and arterioles, unspecified (principal); I48.91 Unspecified atrial fibrillation; I10 Essential (primary) hypertension; E78.5 Hyperlipidemia, unspecified; E87.6 Hypokalemia; F10.10 Alcohol abuse, uncomplicated; Z20.822 Contact with and (suspected) exposure to COVID-19; I25.10 Atherosclerotic heart disease of native coronary artery without angina pectoris; Z88.0 Allergy status to penicillin; Z79.899 Other long term (current) drug therapy
CPT/HCPCS: 10081

== ENCOUNTER 2021-06-27 17:49 | Emergency (ER) | payer OTHER ==
[~2021-06-27] VITALS: Ht 182.9 cm; Wt 77.1 kg
[2021-06-27 19:30] LABS: SALICYLATE 5.4 mg/dL (2.8-20.0)
[2021-06-27 20:10] LABS: ABSOLUTE NEUTROPHILS 3.5 thou/uL (1.4-8.2); BASOPHILS 4.9 % (0.0-2.0); HEMATOCRIT 41.9 % (42.0-52.0); HEMOGLOBIN 14.3 gm/dL (14.0-18.0); LYMPHOCYTES 40.8 % (24.0-44.0); MCH 32.9 pg (26.0-34.0); MCHC 34.1 g/dL (28.0-37.0); MCV 96.6 fL (80.0-100.0); PLATELET COUNT 188 thou/uL (150-400); POLYS 46.3 % (36.0-66.0); RBC 4.34 mil/uL (4.50-6.00); RDW 14.6 % (10.5-14.5); WBC 7.6 thou/uL (4.0-11.0)
[2021-06-27 21:24] LABS: CALCIUM 8.9 mg/dL (8.5-10.1); CREATININE 1.1 mg/dL (0.7-1.3); POTASSIUM 4.4 mmol/L (3.5-5.1)
[2021-06-28 02:26] LABS: AMP/METHAMP Negative (Negative); BARBITURATES Negative (Negative); BENZODIAZEPINES Negative (Negative); COCAINE Negative (Negative); METHADONE Negative (Negative); OPIATES Negative (Negative); PCP Negative (Negative)
[2021-06-28 06:14] VITALS: BP 136/80
== END 2021-06-28 06:10 | disposition home or self-care (01) ==
LOC: ER 17:49
PROVIDERS: Student in an Organized Health Care Education/Training Program
DX: F10.129 Alcohol abuse with intoxication, unspecified (principal); Z20.822 Contact with and (suspected) exposure to COVID-19; I25.10 Atherosclerotic heart disease of native coronary artery without angina pectoris; F10.10 Alcohol abuse, uncomplicated; F12.10 Cannabis abuse, uncomplicated; I10 Essential (primary) hypertension; E78.5 Hyperlipidemia, unspecified; J44.9 Chronic obstructive pulmonary disease, unspecified; J45.909 Unspecified asthma, uncomplicated; F17.210 Nicotine dependence, cigarettes, uncomplicated; Z79.51 Long term (current) use of inhaled steroids; Z79.82 Long term (current) use of aspirin; Z79.891 Long term (current) use of opiate analgesic; Z79.899 Other long term (current) drug therapy; Z88.0 Allergy status to penicillin; Y90.8 Blood alcohol level of 240 mg/100 ml or more

== ENCOUNTER 2021-07-31 20:12 | Emergency (ER) | payer OTHER ==
[~2021-07-31] VITALS: Ht 167.6 cm; Wt 76.2 kg
[2021-07-31 20:54] LABS: ABSOLUTE NEUTROPHILS 3.8 thou/uL (1.4-8.2); BASOPHILS 0.4 % (0.0-2.0); EOSINOPHILS 1.3 % (0.0-3.0); HEMATOCRIT 37.9 % (42.0-52.0); HEMOGLOBIN 12.8 gm/dL (14.0-18.0); LYMPHOCYTES 37.4 % (24.0-44.0); MCH 33.3 pg (26.0-34.0); MCHC 33.9 g/dL (28.0-37.0); MCV 98.1 fL (80.0-100.0); MONOCYTES 4.6 % (1.0-8.0); PLATELET COUNT 123 thou/uL (150-400); POLYS 56.3 % (36.0-66.0); RBC 3.86 mil/uL (4.50-6.00); RDW 14.9 % (10.5-14.5); WBC 6.8 thou/uL (4.0-11.0)
[2021-07-31 21:06] LABS: ANION GAP 13 mmol/L (7-16); BUN 8 mg/dL (7-18); CALCIUM 8.2 mg/dL (8.5-10.1); CHLORIDE 103 mmol/L (98-107); CO2 25 mmol/L (21-32); CREATININE 0.9 mg/dL (0.7-1.3); GLUCOSE 80 mg/dL (74-106); POTASSIUM 3.5 mmol/L (3.5-5.1); SODIUM 141 mmol/L (136-145)
[2021-07-31 21:15] LABS: ALBUMIN 3.4 g/dL (3.4-5.0); SGOT 45 U/L (15-37); SGPT 22 U/L (30-65); TOTAL BILIRUBIN 0.5 mg/dL (0.2-1.0); TOTAL PROTEIN 7.1 g/dL (6.4-8.2)
[2021-08-01 05:10] VITALS: BP 148/94
--- NOTE | 2021-08-02 07:20 | EKG ---
[facility] [place] [employer] [place] [address] ELECTROCARDIOGRAM REPORT Name: CHRIS SYKES Room #: [facility]#: [id number] Admission: 07/31/21 Attend Phys: Discharge: 08/01/21 Date of : 59 Report #: [id number] [facility] ED Test Date: 2021-07-31 Test Time: 20:18:55 Pat Name: CHRIS SYKES Department: Room: Gender: M [employer]: : 1955 Requested By: Maria Eugenia Lucas Order Number: [id number] MD: Gregorio Reyes Measurements Intervals [place] Rate: 86 P: 68 W[place]: 170 QRS: 81 QRSD: 104 T: 57 QT: 401 QTc: 480 Interpretive Statements Sinus rhythm Borderline right axis deviation Borderline prolonged QT interval Compared to ECG 06/11/2021 17:40:59 ST (T wave) deviation now present Ventricular premature complex(es) no longer present Electronically Signed On 08-02-2021 7:20:11 PATIENT RELATIONS COORDINATOR by Gregorio Reyes [email or web address] <ELECTRONICALLY SIGNED> By: Gregorio Reyes MD, [facility] 08/02/21 0720 17 17 Gregorio Reyes MD, FACC /EPI
== END 2021-08-01 05:20 | disposition home or self-care (01) ==
LOC: ER 20:12
PROVIDERS: Emergency Medicine
DX: R07.89 Other chest pain (principal); Z20.822 Contact with and (suspected) exposure to COVID-19; I10 Essential (primary) hypertension; J44.9 Chronic obstructive pulmonary disease, unspecified; J45.909 Unspecified asthma, uncomplicated; F10.10 Alcohol abuse, uncomplicated; F17.210 Nicotine dependence, cigarettes, uncomplicated; Z90.49 Acquired absence of other specified parts of digestive tract; Z88.0 Allergy status to penicillin